=== PATIENT | male | born 1970 | race Caucasian/White ===

== ENCOUNTER 2024-02-26 10:10 | Day surgery (SDC) | payer BC ==
[2024-02-26] MEDS ORDERED: Lidocaine 2% 5 ML SDV ONE ×2 (10:14→10:45)
[2024-02-26] MEDS ORDERED: propofoL 500 MG/50 ML 0 ML ONE (10:14)
[2024-02-26] MEDS: Lactated Ringers 1,000 ML IV SCH (10:39)
[2024-02-26] MEDS ORDERED: propofoL 500 MG/50 ML 50 ML ONE (10:43)
[2024-02-26] MEDS ORDERED: Propofol 200 MG/20 ML SDV ONE (11:06)
[2024-02-26] MEDS ORDERED: Lactated Ringers 1,000 ML IV SCH (11:30)
== END 2024-02-26 12:05 | disposition home or self-care (01) ==
LOC: MW.SDS 10:10
PROVIDERS: ATTEND Surgery
DX: Z12.11 Encounter for screening for malignant neoplasm of colon (principal); K62.1 Rectal polyp; I10 Essential (primary) hypertension; E78.00 Pure hypercholesterolemia, unspecified; F17.210 Nicotine dependence, cigarettes, uncomplicated; Z79.899 Other long term (current) drug therapy
CPT/HCPCS: 45380; J2704; J7120; J3490